=== PATIENT | female | born 1970 | race African-American/Black ===

== ENCOUNTER 2016-05-03 11:20 | Emergency (ER) | payer MEDICAID ==
[~2016-05-03 11:20] MED LIST changes: -AMLODIPINE BESYL5 MG PO; -ASPIRIN ENTERI325 M1 PO; -PERCOCET10 PO; -PRINIVIL10 MG PO; -SERTRALINE HCL25 M1 PO
[2016-05-04] MEDS ORDERED: PRINIVIL10 MG PO (09:47)
[2016-10-11] MEDS ORDERED: AMLODIPINE BESYL5 MG PO (08:27)
[2016-10-11] MEDS ORDERED: SERTRALINE HCL25 M1 PO (08:28)
== END 2016-05-03 14:05 | disposition home or self-care (01) ==
LOC: CED 11:20
DX: I10 Essential (primary) hypertension (principal); Z86.73 Personal history of transient ischemic attack (TIA), and cerebral infarction without residual deficits; F17.200 Nicotine dependence, unspecified, uncomplicated; Z88.0 Allergy status to penicillin; Z88.2 Allergy status to sulfonamides; Z79.899 Other long term (current) drug therapy
CPT/HCPCS: 99283

== ENCOUNTER → 2016-05-03 | Outpatient (CLI) | payer MEDICAID ==
[~2016-05-03] MED LIST: AMLODIPINE BESYL5 MG PO; ASPIRIN ENTERI325 M1 PO; BLACK COHOSH40 MG PO; CHLORTHALIDONE25 MG PO; FAMOTIDINE20 MG PO; NAPROSYN500 MG PO; PERCOCET10 PO; PRINIVIL10 MG PO; SERTRALINE HCL25 M1 PO; TRAMADOL HCL50 M2 PO
--- NOTE | ~2016-05-03 | EKG ---
PATIENT: NEVILLE LUEVANO UNIT #: [id number] Ventricular Rate: 60 BPM Atrial Rate: 60 BPM P-R Interval: 172 ms QRS Duration: 82 ms Q-T Interval: 446 ms QTC Calculation(Bezet): 446 ms P Cucumber: 27 degrees Calculated R Cucumber: 1 degrees Calculated T Cucumber: 20 degrees Diagnosis Line: Normal sinus rhythm with sinus arrhythmia Diagnosis Line: Normal ECG Diagnosis Line: No previous ECGs available Diagnosis Line: Confirmed by TRISTON THOMSON MD ([id number]) on 05/04/2016 Diagnosis Line: 5:38:42 PM INTERPRETING MD: ALIX MAYS
[2016-05-03 08:58] LABS: URINE APPEARANCE CLEAR; URINE BILIRUBIN NEG (NEG); URINE BLOOD 1+ (NEG); URINE COLOR YELLOW; URINE GLUCOSE NEG (NEG); URINE KETONE NEG (NEG); URINE LEUKOCYTE ESTERASE NEG (NEG); URINE NITRATE NEG (NEG); URINE PH 6.5 (5-8); URINE PROTEIN NEG (NEG); URINE SPECIFIC GRAVITY 1.018 (1.003-1.035); URINE UROBILINOGEN 0.2 MG/DL (NEG)
[2016-05-03 08:59] LABS: HEMATOCRIT 40.3 % (35.0-45.0); HEMOGLOBIN 13.2 gm/dL (12.0-16.0); MEAN CELL VOLUME 89.1 FL (83-96); MEAN CORPUSCULAR HEMOGLOBIN 29.2 PG (28-34); MEAN CORPUSCULAR HGB CONC 32.7 g/dL (30-36); MEAN PLATELET VOLUME 7.5 FL (6.5-11.5); RED BLOOD COUNT 4.53 X10e (3.90-5.30); RED CELL DISTRIBUTION WIDTH 14.1 % (11.0-15.5); WHITE BLOOD COUNT 8.4 X10e3 (4.0-10.5)
[2016-05-03 09:00] LABS: URINE BACTERIA AUWI NEG (NEGATIVE); URINE SQUAMOUS EPITHELIAL CELL OCC /[HPF]; UWBCS1 AUWI 0-2 (0-5)
[2016-05-03 09:01] LABS: CULTURE INDICATED? NO
[2016-05-03 09:11] LABS: INR 0.9; PROTHROMBIN TIME (PATIENT) 9.8 SECONDS (9.6-11.5)
[2016-05-03 09:32] LABS: ALBUMIN SERUM 3.7 g/dL (3.5-5.0); ALKALINE PHOSPHATASE 49 U/L (32-92); ALT (SGPT) 15 U/L (10-40); AST (SGOT) 19 U/L (10-42); BILIRUBIN,TOTAL 0.6 mg/dL (0.2-2.0); BLOOD UREA NITROGEN 14 mg/dL (9-23); CALCIUM SERUM 9.2 mg/dL (8.4-10.2); CARBON DIOXIDE 24 mmol/L (22-31); CHLORIDE 109 mmol/L (100-111); CREATININE SERUM 0.7 mg/dL (0.6-1.4); GLOM FILT RATE Estimated ABOVE60 mL/min (>60); GLUCOSE FASTING 99 mg/dL (70-110); POTASSIUM 3.9 mmol/L (3.5-5.1); PROTEIN TOTAL SERUM 6.8 g/dL (6.0-8.3); SODIUM 144 mmol/L (135-145)
[2016-05-03 10:00] LABS: URINE SOURCE CLEAN CATCH
== END | disposition home or self-care (01) ==
LOC: CAMB 07:59
PROVIDERS: Orthopaedic Surgery
DX: Z01.818 Encounter for other preprocedural examination (principal); M17.11 Unilateral primary osteoarthritis, right knee; I49.9 Cardiac arrhythmia, unspecified
CPT/HCPCS: 36415; 80053; 81003; 85027; 85610; 86850; 86900; 86901; 87070; 93005

== ENCOUNTER → 2016-06-14 | Outpatient (CLI) | payer MEDICAID ==
[~2016-06-14] MED LIST changes: +AMLODIPINE BESYL5 MG PO; +ASPIRIN ENTERI325 M1 PO; +PERCOCET10 PO; +PRINIVIL10 MG PO; +SERTRALINE HCL25 M1 PO
[2016-06-14 10:13] LABS: MEAN CELL VOLUME 89.2 FL (83-96); MEAN CORPUSCULAR HEMOGLOBIN 29.2 PG (28-34); MEAN CORPUSCULAR HGB CONC 32.7 g/dL (30-36); MEAN PLATELET VOLUME 8.2 FL (6.5-11.5); RED BLOOD COUNT 5.16 X10e (3.90-5.30); URINE APPEARANCE CLEAR; URINE BILIRUBIN NEG (NEG); URINE BLOOD 1+ (NEG); URINE COLOR YELLOW; URINE GLUCOSE NEG (NEG); URINE KETONE TRACE (NEG); URINE LEUKOCYTE ESTERASE TRACE (NEG); URINE NITRATE NEG (NEG); URINE PROTEIN TRACE (NEG); URINE SPECIFIC GRAVITY 1.026 (1.003-1.035); WHITE BLOOD COUNT 9.3 X10e3 (4.0-10.5)
[2016-06-14 10:15] LABS: URINE BACTERIA AUWI NEG (NEGATIVE); URINE SQUAMOUS EPITHELIAL CELL OCC /[HPF]; UWBCS1 AUWI 0-2 (0-5)
[2016-06-14 10:16] LABS: CULTURE INDICATED? NO
[2016-06-14 10:25] LABS: PROTHROMBIN TIME (PATIENT) 10.2 SECONDS (9.6-11.5)
[2016-06-14 10:43] LABS: ALBUMIN SERUM 4.1 g/dL (3.5-5.0); BILIRUBIN,TOTAL 0.8 mg/dL (0.2-2.0); BUN/CREATININE RATIO 26.25; CALCIUM SERUM 9.2 mg/dL (8.4-10.2); CREATININE SERUM 0.8 mg/dL (0.6-1.4); GLOM FILT RATE Estimated 101.1 mL/min (>60); POTASSIUM 3.4 mmol/L (3.5-5.1); PROTEIN TOTAL SERUM 7.3 g/dL (6.0-8.3)
== END | disposition home or self-care (01) ==
LOC: CAMB 09:37
PROVIDERS: Orthopaedic Surgery
DX: Z01.812 Encounter for preprocedural laboratory examination (principal); M17.11 Unilateral primary osteoarthritis, right knee
CPT/HCPCS: 36415; 80053; 81003; 85027; 85610; 86850; 86900; 86901

== ENCOUNTER → 2016-08-21 | Outpatient (CLI) | payer MEDICAID ==
[2016-08-21 09:14] LABS: HEMATOCRIT 45.4 % (35.0-45.0); HEMOGLOBIN 15.1 gm/dL (12.0-16.0); MEAN CELL VOLUME 87.9 FL (83-96); MEAN CORPUSCULAR HEMOGLOBIN 29.2 PG (28-34); MEAN CORPUSCULAR HGB CONC 33.2 g/dL (30-36); MEAN PLATELET VOLUME 8.4 FL (6.5-11.5); RED BLOOD COUNT 5.16 X10e (3.90-5.30); RED CELL DISTRIBUTION WIDTH 14.2 % (11.0-15.5); URINE APPEARANCE CLOUDY; URINE BLOOD 3+ (NEG); URINE COLOR DK YELLOW; URINE GLUCOSE NEG (NEG); URINE KETONE TRACE (NEG); URINE LEUKOCYTE ESTERASE TRACE (NEG); URINE NITRATE NEG (NEG); URINE PH 5.5 (5-8); URINE PROTEIN 2+ (NEG); WHITE BLOOD COUNT 19.1 X10e3 (4.0-10.5)
[2016-08-21 09:16] LABS: CULTURE INDICATED? YES; URINE BACTERIA AUWI 1+ (NEGATIVE); URINE SQUAMOUS EPITHELIAL CELL MOD /[HPF]
[2016-08-21 09:23] LABS: PROTHROMBIN TIME (PATIENT) 10.8 SECONDS (10.0-11.7)
[2016-08-21 09:27] LABS: URINE BILIRUBIN NEG (NEG)
[2016-08-21 09:28] LABS: U HYALINE CASTS AUWI 0-2 /[LPF]; URINE MUCUS PRESENT
[2016-08-21 09:29] LABS: URBCS1 AUWI 25-50 /[HPF] (0-2)
[2016-08-21 10:28] LABS: ALBUMIN SERUM 4.6 g/dL (3.5-5.0); BILIRUBIN,TOTAL 0.9 mg/dL (0.2-2.0); BUN/CREATININE RATIO 22.22; CALCIUM SERUM 10.1 mg/dL (8.4-10.2); CREATININE SERUM 0.9 mg/dL (0.6-1.4); GLOM FILT RATE Estimated 87.7 mL/min (>60); POTASSIUM 3.3 mmol/L (3.5-5.1); PROTEIN TOTAL SERUM 8.1 g/dL (6.0-8.3)
== END | disposition home or self-care (01) ==
LOC: CAMB 08:22
PROVIDERS: Orthopaedic Surgery
DX: Z01.812 Encounter for preprocedural laboratory examination (principal); M17.11 Unilateral primary osteoarthritis, right knee
CPT/HCPCS: 36415; 80053; 81003; 85027; 85610; 86850; 86900; 86901; 87070; 87086

== ENCOUNTER → 2016-08-28 | Outpatient (CLI) | payer MEDICAID ==
--- NOTE | ~2016-08-28 | US6 ---
[facility] A Service of [facility] RADIOLOGY TEXT RESULTS PATIENT: NEVILLE AGGARWAL LOCATION: [facility] : 66 UNIT #: [id number] AGE: [address]: Bong Herron MD SEX: F ORDER DR: [id number] [facility] [address] [facility]. [place], [place] [address] [id number] O MR#: [id number] Acc #: [id number] NAME: NEVILLE AGGARWAL : 1970 SEX: F STUDY DATE/TIME: 08/28/2016 9:36 UNIT: [facility] ROOM: STUDY DESCRIPTION: US Abdominal Limited Attending Physician: Bong Herron M.D. Ordering Physician: Bong Herron M.D. Primary Care Physician: Vishnu Montoya M.D. MEDICAL IMAGING REPORT This report is preliminary unless electronic signature is present EXAM Right upper quadrant ultrasound. HISTORY Vomiting. Vomiting blood, nausea, diffuse abdomen pain seen in ED 07/17/2016, elevated white blood cell count. TECHNIQUE Real-time ultrasonography of the right upper quadrant performed. COMPARISON No prior studies for comparison. FINDINGS Visualized pancreas unremarkable. Some portions of head and tail obscured by bowel gas artifact. The liver measures about 13.6 cm in greatest length. Portal vein patent with normal direction of flow. No focal hepatic parenchymal abnormality is seen. The gallbladder is normal in volume. No gallbladder wall thickening or pericholecystic fluid. Gallbladder wall measures about 2 mm in thickness. No gallstones. No focal hepatic parenchymal abnormality. No intra or extrahepatic biliary ductal dilatation. Common duct measures about 2.4 mm in diameter. The right kidney measures 10.77 cm in greatest length. There is no hydronephrosis or nephrolithiasis. No cystic or solid mass lesion and no perinephric fluid collection. IMPRESSION 1. Gallbladder normal. No biliary ductal dilatation. 2. Liver appears within normal limits of size, contour, and echotexture. 3. Right kidney normal. 4. Visualized pancreas normal but some portions of head and tail obscured by bowel gas artifact. If it would assist in management, pancreas could be further assessed with CT. [facility] A Service of [facility] RADIOLOGY TEXT RESULTS PATIENT: NEVILLE AGGARWAL LOCATION: [facility] : 66 UNIT #: [id number] AGE: [address]: Bong Herron MD SEX: F ORDER DR: Dictated by... Nolan Clemens M.D. THIS IS AN ELECTRONICALLY VERIFIED REPORT Nolan Clemens M.D. at 08/30/2016 11:34 AM SAMANTHA/jeremias TD: 08/29/2016 12:26 JOB #: [id number] MEDICAL IMAGING REPORT Page 1 of 1 COPY
== END | disposition home or self-care (01) ==
LOC: CWCC 09:10
DX: R11.2 Nausea with vomiting, unspecified (principal); K21.9 Gastro-esophageal reflux disease without esophagitis; I10 Essential (primary) hypertension; Z90.710 Acquired absence of both cervix and uterus; Z88.0 Allergy status to penicillin; Z88.1 Allergy status to other antibiotic agents
CPT/HCPCS: 76705

== ENCOUNTER → 2016-10-11 | Outpatient (CLI) | payer MEDICAID ==
--- NOTE | ~2016-10-11 | CO ---
Unit #: [id number] #: [id number] Patient: NEVILLE AGGARWAL [id number] [address] [place], [place] [address] [id number] O MR#: [id number] NAME: NEVILLE AGGARWAL ROOM: Age: 46 Sex: F Admission Date: 10/11/2016 : 1970 Attending Physician: Kings Maloney M.D. Primary Care Physician: Vishnu Montoya M.D. CONSULTATION REPORT ADDENDUM DATE OF ADDENDUM October 18, 2016. REASON FOR ADDENDUM Preoperative medical clearance prior to right total knee arthroplasty, rescheduled by Dr. Maloney for October 20, 2016. HISTORY OF PRESENT ILLNESS The patient is a 46-year-old -[place]ene[place] female, who presented to preprocedural screening on several occasions for medical evaluation prior to right total knee arthroplasty procedure. The patient has been here for several visits; however, during the initial visit she was transported to the emergency department by Dr. Don Weinstein for hypertensive urgency. Patient's suddenly since that time and she has rescheduled the preoperative evaluation process and surgery on more than one occasion since that time. I reviewed the patient's laboratory work and vital signs when she presented to preprocedural screening on August 24, 2016 and it was noted that she had leukocytosis, hypokalemia, and complained of fatigue and intermittent hematemesis. Please refer to the brief note to which this consultation report is attached for complete details. At that time, the patient was referred to her primary care physician for further evaluation and management of her condition. On August 25, 2016, she was evaluated and examined and given a physical examination by Dr. Vishnu Montoya, [facility] Per review of those office notes today, other than suprapubic tenderness the patient's physical examination was completely negative. Lab work from that date has been reviewed as well as lab work collected at her return visit on October 01, 2016. I have spoken with the patient by telephone this morning and she has no complaints other than right knee pain. She denies chest pain, upper back, arm, neck, jaw pain or pressure. Denies lightheadedness, dizziness, presyncope, syncope, and palpitations. She denies myocardial infarction, congestive heart failure though states she had a mild CVA in 2005. Denies diabetes and kidney disease. She underwent EGD with biopsy at [facility] under direction of Dr. Bong Herron on September 22, 2016. Assessment included normal appearing small bowel, mild gastritis of the antrum, 2 cm hiatal hernia, and normal appearing esophagus. Biopsies were taken of the small bowel to rule out celiac sprue. The antrum and specimens sent for H. pylori testing. Biopsies sent at 40 cm to rule out Adan's esophagus and biopsies were taken of the distal portion of the esophagus to rule out Unit #: [id number] #: [id number] Patient: NEVILLE AGGARWAL microscopic esophagitis. Patient was placed on Protonix 40 mg p.o. every morning. Patient was advised to call the office in one to two weeks to review pathology results. Per review of Dr. Herron's report, her right upper quadrant ultrasound was normal and no further testing was planned as she was asymptomatic at that time. Per review of his note, he indicated that she will proceed on with her knee surgery. PAST MEDICAL HISTORY 1. Mild CVA in 2005. 2. Hypertension. 3. GERD. 4. Gastritis. 5. Osteoarthritis. 6. Sciatica. 7. Morbid obesity, BMI 41. PAST SURGICAL HISTORY 1. Hysterectomy. 2. Ventral hernia repair. 3. Wound debridement after abdominal hernia repair. 4. Umbilical hernia repair as an infant. 5. EGD, September 22, 2016 at [facility]. Please note, this patient states she has nausea and vomiting with "gas anesthesia." ALLERGIES Denies latex allergy. Reports allergies to penicillin, sulfamethoxazole, and trimethoprim; all of which causes hives. CURRENT MEDICATIONS 1. Famotidine 20 mg p.o. daily p.r.n. heartburn. 2. Naprosyn 500 mg p.o. b.i.d. p.r.n. pain. 3. Amlodipine besylate 5 mg p.o. daily. 4. Sertraline HCl 25 mg p.o. daily. SOCIAL HISTORY Has smoked cigarettes, less than one pack of cigarettes daily for the past 31 years. Consumes wine once weekly and smokes marijuana three joints daily. FAMILY HISTORY Per review of Dr. Maloney's office note: Diabetes, hypertension, stroke, heart disease, and cancer. REVIEW OF SYSTEMS A 10-point review of systems is conducted and otherwise negative except as indicated under history of present illness above. PHYSICAL EXAMINATION This patient was completely examined by her primary care physician, Dr. Montoya, at her office visit on August 25, 2016. Please refer to those office records included with the patient's complete medical chart. DIAGNOSTIC STUDIES LABORATORY: Recollected at [facility] on October 11, 2016: WBC 9.1, hemoglobin 13.5, hematocrit 40.2, platelets 165,000. PT 10, INR 0.9. Urinalysis: Urobilinogen 1, blood 1+, RBC 10-25, U-hyal Unit #: [id number] #: [id number] Patient: NEVILLE AGGARWAL M 2-5. Urine culture and sensitivity not indicated. Sodium 141, potassium 3.8, chloride 107, CO2 of 24, glucose 94, BUN 22, creatinine 0.6, calcium 9.3. AST 17, ALT 15, alkaline phosphatase 54, bilirubin total 0.9, total protein 7.3, albumin 3.9. Blood type O positive. Antibody screen negative. MRSA screen negative for MRSA. IMAGING: A two-view chest x-ray report pending. An order has been written for the patient to have a two-view chest x-ray STAT the a.m. of OR and for results to be called if abnormal. CARDIOVASCULAR: A 12-lead EKG, May 03, 2016: Normal sinus rhythm with sinus arrhythmia. Normal ECG. IMPRESSION The patient is a 46-year-old -[place] female, who presented to preprocedural screening for: 1. Preoperative medical evaluation prior to right total knee arthroplasty as rescheduled by Dr. Maloney for October 20, 2016. The patient's Lopez Revised Cardiac Risk Index is equal to 1% to 2.4% based on history of mild cerebrovascular accident. This represents the patient's rate of cardiac , fatal or nonfatal myocardial infarction, cardiopulmonary arrest, arrhythmia and/or pulmonary edema. This has been discussed with the patient and she wishes to proceed with surgery as scheduled at this time. 2. Risk factors for obstructive sleep apnea: The patient will likely be placed on obstructive sleep apnea protocol based on STOP-Bang criteria. 3. Obesity: Body mass index 41. Weight loss to recommended body mass index is suggested. 4. Urinary tract infection: Resolved. Patient's repeat urinalysis performed here at [facility] on October 11, 2016 was negative for infection. There is no need to repeat a urinalysis prior to surgery as the patient is asymptomatic. 5. Microscopic hematuria: The patient is stable and hemoglobin and hematocrit is stable at this time. Will follow up with her primary care physician in this regard. 6. Hypertension: Controlled. Will continue current dose of blood pressure medication and adjust medications perioperatively based on blood pressure. 7. History of mild cerebrovascular accident in 2005. 8. Tobacco use. 9. Marijuana use. 10. History of postoperative nausea and vomiting. 11. Primary osteoarthritis of the right knee. 12. History of sciatica. Thank you for allowing us to participate in the care of this patient. We will gladly follow the patient postoperatively for medical management pending order of Dr. Maloney. Dictated by... Elodia Sams A.P.R.N. for Max Narayanan/paulo TD: 10/18/2016 11:19 Unit #: [id number] #: [id number] Patient: NEVILLE AGGARWAL JOB #: [id number] CONSULTATION REPORT Page 1 of 1 X Elodia Sams HOT MOLDER X CONSULTATION REPORT
[2016-10-11 08:20] LABS: HEMATOCRIT 40.2 % (35.0-45.0); HEMOGLOBIN 13.5 gm/dL (12.0-16.0); MEAN CELL VOLUME 89.1 FL (83-96); MEAN CORPUSCULAR HEMOGLOBIN 29.9 PG (28-34); MEAN CORPUSCULAR HGB CONC 33.6 g/dL (30-36); MEAN PLATELET VOLUME 7.8 FL (6.5-11.5); RED BLOOD COUNT 4.52 X10e (3.90-5.30); RED CELL DISTRIBUTION WIDTH 14.7 % (11.0-15.5); WHITE BLOOD COUNT 9.1 X10e3 (4.0-10.5)
[2016-10-11 08:26] LABS: URINE APPEARANCE CLEAR; URINE BILIRUBIN NEG (NEG); URINE BLOOD 1+ (NEG); URINE COLOR YELLOW; URINE GLUCOSE NEG (NEG); URINE KETONE NEG (NEG); URINE LEUKOCYTE ESTERASE NEG (NEG); URINE NITRATE NEG (NEG); URINE PH 5.5 (5-8); URINE PROTEIN NEG (NEG); URINE SPECIFIC GRAVITY 1.026 (1.003-1.035)
[2016-10-11 08:28] LABS: URINE BACTERIA AUWI NEG (NEGATIVE); URINE SQUAMOUS EPITHELIAL CELL OCC /[HPF]; UWBCS1 AUWI 0-2 (0-5)
[2016-10-11 08:32] LABS: CULTURE INDICATED? NO
[2016-10-11 08:33] LABS: INR 0.9
[2016-10-11 08:56] LABS: ALBUMIN SERUM 3.9 g/dL (3.5-5.0); BILIRUBIN,TOTAL 0.9 mg/dL (0.2-2.0); BUN/CREATININE RATIO 36.66; CALCIUM SERUM 9.3 mg/dL (8.4-10.2); CREATININE SERUM 0.6 mg/dL (0.6-1.4); GLOM FILT RATE Estimated 124.9 mL/min (>60); POTASSIUM 3.8 mmol/L (3.5-5.1); PROTEIN TOTAL SERUM 7.3 g/dL (6.0-8.3)
== END | disposition home or self-care (01) ==
LOC: CAMB 07:33
PROVIDERS: Orthopaedic Surgery
DX: Z01.812 Encounter for preprocedural laboratory examination (principal); M17.11 Unilateral primary osteoarthritis, right knee
CPT/HCPCS: 36415; 80053; 81003; 85027; 85610; 86850; 86900; 86901; 87070

== ENCOUNTER 2016-10-20 05:51 | Inpatient (IN) | payer MEDICAID ==
[~2016-10-20] VITALS: Ht 165.1 cm; Wt 128.5 kg
--- NOTE | ~2016-10-20 | DS ---
Unit #: [id number] #: [id number] Patient: CAMILLE AGGARWAL [id number] [address] [address] [id number] I MR#: [id number] NAME: CAMILLE AGGARWAL. ROOM: [facility] Age: 46 Sex: F Admission Date: 10/20/2016 : 1970 Discharge Date: 10/22/2016 Attending Physician: Kings Maloney M.D. Primary Care Physician: Vishnu Montoya M.D. DISCHARGE SUMMARY DISCHARGE DIAGNOSIS Right knee osteoarthritis, status post total knee arthroplasty. DISCHARGE MEDICATIONS 1. The patient will restart all of her home medications except for naproxen. 2. Aspirin 325 mg p.o. b.i.d. for 6 weeks. 3. Percocet 10/325 mg 0.5-1 tablet p.o. q.4 h. p.r.n. pain. HOSPITAL COURSE Camille had a right total knee arthroplasty on 10/20/2016. She did well postoperatively. Labs and vital signs are stable. She is cleared for discharge to home by medicine. She tolerated therapy well. DISPOSITION HOME. DISCHARGE INSTRUCTIONS 1. The patient will have home healthcare and will continue to work on range of motion and strengthening of the right knee. 2. [place] will be removed in two weeks by home healthcare. 3. The patient will follow up in six weeks with Dr. Maloney regarding her right knee. 4. She will continue with aspirin b.i.d. for six weeks for DVT prophylaxis. 5. She will call the office with any questions or concerns related to her care. Dictated by... Max Chacon/bonnie TD: 10/22/2016 10:35 JOB #: [id number] CC: Ramsey Luciano M.D. Unit #: [id number] #: [id number] Patient: CAMILLE AGGARWAL DISCHARGE SUMMARY Page 1 of 1 X X DISCHARGE SUMMARY
--- NOTE | ~2016-10-20 | BMI ---
[facility] Nutrition Therapy DATE: 10/21/16 Patient: NEVILLE PEREZ BASSEM Physician: STANTON Address: [address] [place] [address] Room/Bed: [address] [place] [address], Zip: [place] [address] Admit Date: 10/20/16 Date of : [birth year] Height: 5 5 Weight: 283 128.5 HIGH BMI NOTE: DX: R-KNEE OA ANTHROPOMETRICS: HT: 65", WT: 283#, BMI: 47.1 DIET: REGULAR RECOMMENDATIONS: RECOMMEND ADDING HEART HEALTHY TO CURRENT DIET ORDER TO PROMOTE A STEADY WEIGHT LOSS TOWARDS A HEALTHY BMI OF 19-25 Respectfully, SIMIN MIGUEL RD, LD [facility] cc: client file
--- NOTE | ~2016-10-20 | OR ---
Unit #: [id number] #: [id number] Patient: NEVILLE AGGARWAL [id number] [address] [place], [place] [address] [id number] I MR#: [id number] NAME: NEVILLE AGGARWAL ROOM: [facility] Date of Procedure: 10/20/2016 Admission Date: 10/20/2016 Surgeon: Kings Maloney M.D. : 1970 Attending Physician: Kings Maloney M.D. Primary Care Physician: Vishnu Montoya M.D. OPERATIVE REPORT PREOPERATIVE DIAGNOSIS Primary localized osteoarthritis of the right knee. POSTOPERATIVE DIAGNOSIS Primary localized osteoarthritis of the right knee. PROCEDURE PERFORMED Right total knee. INTERIOR BLOCK WIRER Jude. ANESTHESIA Adductor canal block plus general. ESTIMATED BLOOD LOSS 100 mL. DESCRIPTION OF PROCEDURE The patient was brought to the operating room, given 2 g of vancomycin. This will be continued postop. The patient had an adductor canal block performed, brought back to the operating room and given a general anesthetic. Tourniquet placed around the right thigh. The right leg was prepped and draped in a sterile fashion. Tourniquet was inflated to 300. A straight anterior skin incision was made. The subcutaneous dissected away and a medial arthrotomy performed. Patella was slid to the side. Osteophytes were removed from the femur. The intramedullary guide was used and a 5 degree valgus cut was made on the distal femur. The femur was sized for the Suarez and Nephew Stephany II Oxinium knee and it was found to be a size 5. The anterior and posterior cuts were made along with the chamfer cuts. Proximal tibial cut was made using an external guide. It was sized at a 3. Any remaining meniscal fragments debrided. Posterior capsule and periosteum were injected with ropivacaine and after this was done, the trials were applied. The lug holes were punched for the real component. We found that the 9 mm insert gave us excellent stability in extension and flexion. The external alignment guide showed appropriate alignment of the limb. The patella was grasped with 2 towel clips, measured 22 mm thick, was cut smooth at 13 and a size 29 patellar resurfacing component was the appropriate size. The 3 drill holes were made. Trial patella applied and it fit properly. We then removed all the trials, used the drill and punch for the tibial tray. The knee was irrigated and dried while the cement was mixed and then all 3 components Unit #: [id number] #: [id number] Patient: NEVILLE AGGARWAL were cemented simultaneously. Once again, it was a size 5 cruciate retaining femur, size 3 tibial tray, and a 29 mm patella from the Suarez [employer] Nephew Oxinium Stephany II knee. Any excess cement was removed. After the cement was hardened, it was judged that the 9 insert was the appropriate thickness, so this was opened and applied to the tray. The tourniquet released. Hemostasis obtained. The rest of the ropivacaine mixture injected. The wound was irrigated with Betadine and bacitracin and then closed using 0 Ethibond in the arthrotomy, 0 and 2-0 Vicryl in the subcutaneous, and romeo in the skin. Dictated by... Max Saucedo/mathew TD: 10/20/2016 13:00 JOB #: [id number] OPERATIVE REPORT Page 1 of 1 X Kings Maloney MD X PROCEDURE OPERATIVE NOTE
[~2016-10-20 05:51] MED LIST changes: -ASPIRIN ENTERI325 M1 PO; -PERCOCET10 PO
[2016-10-20 06:55] LABS: INR 0.9; PROTHROMBIN TIME (PATIENT) 9.9 SECONDS (10.0-11.7)
[2016-10-21 03:41] LABS: HEMATOCRIT 34.6 % (35.0-45.0); HEMOGLOBIN 11.5 gm/dL (12.0-16.0)
[2016-10-21 04:37] LABS: CALCIUM SERUM 8.7 mg/dL (8.4-10.2); CREATININE SERUM 0.6 mg/dL (0.6-1.4); GLOM FILT RATE Estimated 124.9 mL/min (>60); MAGNESIUM 1.8 mg/dL (1.6-3.0); POTASSIUM 3.8 mmol/L (3.5-5.1)
[2016-10-22 03:47] LABS: HEMATOCRIT 34.3 % (35.0-45.0); HEMOGLOBIN 11.4 gm/dL (12.0-16.0)
[2016-10-22] MEDS ORDERED: PERCOCET10 PO (11:37)
[2016-10-22] MEDS ORDERED: ASPIRIN ENTERI325 M1 PO (11:37)
== END 2016-10-22 12:33 | disposition home health service (06) | DRG 470 ==
LOC: CSUR 05:51 → CPACUOF 08:40 → C4B 08:40 → CSUR 10:30 → C4B 10-21 17:29
PROVIDERS: Nurse Practitioner; Orthopaedic Surgery
PROC: 0SRC0J9 Replacement of Right Knee Joint with Synthetic Substitute, Cemented, Open Approach (ICD-10-PCS; principal; 2016-10-20 07:30)
DX: M17.11 Unilateral primary osteoarthritis, right knee (principal); Z68.41 Body mass index [BMI] 40.0-44.9, adult; I10 Essential (primary) hypertension; F17.210 Nicotine dependence, cigarettes, uncomplicated; F32.9 Major depressive disorder, single episode, unspecified; E66.01 Morbid (severe) obesity due to excess calories; K21.9 Gastro-esophageal reflux disease without esophagitis; Z86.73 Personal history of transient ischemic attack (TIA), and cerebral infarction without residual deficits; Z90.710 Acquired absence of both cervix and uterus; Z88.0 Allergy status to penicillin; Z88.2 Allergy status to sulfonamides
CPT/HCPCS: 80048; 83735; 85014; 85018; 85610; 94010; 94760; 97110; 97116; 97161; 97530; C1776; G8978-GP; G8979-GP; G8980-GP; J0131; J0171; J0330; J0735; J1100; J1885; J2250; J2270; J2405; J2710; J2795; J3010; J3370

== ENCOUNTER 2016-11-15 09:56 | Emergency (ER) | payer MEDICAID ==
[~2016-11-15] VITALS: Ht 162.6 cm; Wt 113.4 kg
--- NOTE | ~2016-11-15 | CR2 ---
[facility] A Service of [facility] RADIOLOGY TEXT RESULTS PATIENT: NEVILLE AGGARWAL LOCATION: [facility] : [birth year] UNIT #: [id number] AGE: [address]: Rashaad Sage MD SEX: F ORDER DR: [id number] [facility] [address] [facility]. [place], [place] [address] [id number] MR#: [id number] Acc #: [id number] NAME: NEVILLE AGGARWAL : 1970 SEX: F STUDY DATE/TIME: 11/15/2016 12:38 UNIT: [facility] ROOM: STUDY DESCRIPTION: CR Abdomen Acute Series Attending Physician: Rashaad Sage M.D. Ordering Physician: Rashaad Sage M.D. Primary Care Physician: Vishnu Montoya M.D. MEDICAL IMAGING REPORT This report is preliminary unless electronic signature is present EXAM Acute abdomen series. HISTORY Nausea, vomiting, diarrhea, shortness of breath for 2 days. HISTORY Essential hypertension and smoking, history of TIA. FINDINGS Supine erect views of the abdomen, upright view chest reviewed. No previous. Evaluation of the upright chest shows normal cardiac silhouette size. There is no acute-appearing parenchymal infiltrate or acute congestive failure. No pneumothorax. No free air under the hemidiaphragms. The upright film is particularly technically limited. Colonic gas and stool are seen to the level of the rectum. No distended bowel loops appreciated. No abnormal abdominal calcifications appreciated. No abnormal air-fluid levels appreciated. IMPRESSION 1. Study is limited by obesity. 2. No active disease seen in the chest. 3. No free intraperitoneal air, abnormal air-fluid level or suspicion for bowel obstruction. Dictated by... Claudette Young M.D. THIS IS AN ELECTRONICALLY VERIFIED REPORT Claudette Young M.D. at 11/15/2016 3:09 PM SAC/bd [facility] A Service of [facility] RADIOLOGY TEXT RESULTS PATIENT: NEVILLE AGGARWAL LOCATION: [facility] : [birth year] UNIT #: [id number] AGE: [address]: Rashaad Sage MD SEX: F ORDER DR: TD: 11/15/2016 13:57 JOB #: [id number] MEDICAL IMAGING REPORT Page 1 of 1 COPY
[~2016-11-15 09:56] MED LIST changes: +ASPIRIN ENTERI325 M1 PO; +PERCOCET10 PO
[2016-11-15 11:08] LABS: BASOPHIL# 0.1 X10e3 (0-0.3); BASOPHIL% 0.9 % (0-2.5); HEMOGLOBIN 13.3 gm/dL (12.0-16.0); LYMPHOCYTE% 16.4 % (17.0-45.0); MEAN CELL VOLUME 87.3 FL (83-96); MEAN CORPUSCULAR HEMOGLOBIN 28.9 PG (28-34); MEAN CORPUSCULAR HGB CONC 33.1 g/dL (30-36); MEAN PLATELET VOLUME 7.6 FL (6.5-11.5); MONOCYTE# 0.7 X10e3 (0-1.0); MONOCYTE% 5.6 % (3.0-12.0); NEUTROPHIL# 9.4 X10e3 (1.5-7.1); NEUTROPHIL% 77.1 % (40-75); PLATELET COUNT 241 X10e3 (140-420); RED BLOOD COUNT 4.59 X10e (3.90-5.30); RED CELL DISTRIBUTION WIDTH 14.8 % (11.0-15.5); WHITE BLOOD COUNT 12.3 X10e3 (4.0-10.5)
[2016-11-15 11:10] LABS: DIFF IND NO
[2016-11-15 11:46] LABS: ALBUMIN SERUM 4.2 g/dL (3.5-5.0); BILIRUBIN, DIRECT 0.1 mg/dL (0.0-0.2); BILIRUBIN,INDIRECT 0.5 mg/dL (0.0-0.9); BILIRUBIN,TOTAL 0.6 mg/dL (0.2-2.0); BUN/CREATININE RATIO 18.57; CALCIUM SERUM 9.5 mg/dL (8.4-10.2); CREATININE SERUM 0.7 mg/dL (0.6-1.4); GLOM FILT RATE Estimated 118.7 mL/min (>60); POTASSIUM 3.2 mmol/L (3.5-5.1); PROTEIN TOTAL SERUM 8.3 g/dL (6.0-8.3)
[2016-11-15 12:18] LABS: URINE SOURCE CLEAN CATCH
[2016-11-15 12:24] LABS: URINE APPEARANCE CLEAR; URINE BILIRUBIN NEG (NEG); URINE BLOOD 2+ (NEG); URINE COLOR YELLOW; URINE GLUCOSE NEG (NEG); URINE KETONE 1+ (NEG); URINE LEUKOCYTE ESTERASE TRACE (NEG); URINE NITRATE NEG (NEG); URINE PROTEIN 2+ (NEG); URINE SPECIFIC GRAVITY 1.021 (1.003-1.035)
[2016-11-15 12:26] LABS: URBCS1 AUWI 50-100 /[HPF] (0-2); URINE BACTERIA AUWI NEG (NEGATIVE); URINE SQUAMOUS EPITHELIAL CELL MOD /[HPF]
[2016-11-15 12:50] LABS: URINE MUCUS PRESENT
== END 2016-11-15 14:30 | disposition home or self-care (01) ==
LOC: CED 09:56
PROVIDERS: Emergency Medicine
DX: R10.9 Unspecified abdominal pain (principal); R11.10 Vomiting, unspecified; E87.6 Hypokalemia; I10 Essential (primary) hypertension; F17.200 Nicotine dependence, unspecified, uncomplicated; Z88.0 Allergy status to penicillin; Z88.2 Allergy status to sulfonamides; Z88.8 Allergy status to other drugs, medicaments and biological substances; Z79.82 Long term (current) use of aspirin; Z79.899 Other long term (current) drug therapy
CPT/HCPCS: 36415; 74022; 80048; 80076; 81003; 83690; 85025; 96361; 96374; 96375; 99284; J2270; J2550